=== PATIENT | female | born 1955 | race Asian ===

== ENCOUNTER 2016-11-18 08:29 | Outpatient (CLI) | payer OTHER ==
[~2016-11-18 08:29] MED LIST: FENOFIBRATE; NIACIN
[2016-11-18 09:42] LABS: ALBUMIN 4.5 g/dL (3.4-4.8); BILIRUBIN,DIRECT 0.2 mg/dL (0.0-0.3); TOTAL BILIRUBIN 0.8 mg/dL (0.0-1.0)
== END 2016-11-18 18:08 | disposition home or self-care (01) ==
LOC: SLB 08:29
PROVIDERS: ATTEND Family Medicine
DX: E78.00 Pure hypercholesterolemia, unspecified (principal)
CPT/HCPCS: 36415; 80061; 80076

== ENCOUNTER 2017-04-15 08:57 | Emergency (ER) | payer OTHER ==
[~2017-04-15] VITALS: Ht 152.4 cm; Wt 54.4 kg
[2017-04-15 08:57] VITALS: BP_SYST 146
--- NOTE | 2017-04-15 08:57 | NUR ---
BROUGHT BACK TO BED #3 AND TRIAGED. REPORT GIVEN TO JORDIN
--- NOTE | 2017-04-15 09:00 | NUR ---
Pt presents to ER c/o productive cough & chest tightness x 5 days. Pt reports coughing up white sputum. Pt reports pain when she coughs, but denies any pain elsewhere. Pt also denies N/V/D/CHEST PAIN/SOB. Pt reports history of HTN, hyperlipidemia. Pt in no acute distress, AOX4, allergies noted, brought in by self to ER.
--- NOTE | 2017-04-15 09:10 | NUR ---
ER at bedside examining patient.
--- NOTE | 2017-04-15 09:30 | NUR ---
Patient transported to radiology via ambulatory, accompanied by rad staff.
--- NOTE | 2017-04-15 09:38 | NUR ---
Returned from radiology, back to [facility].
[2017-04-15] MEDS: ALBUTEROL SULFATE 0.083% 2.5 MG/3 ML VIAL.NEB IH ONE (09:44)
[2017-04-15] MEDS: IPRATROPIUM BROM 0.5 MG/2.5 ML VIAL.NEB (ATROVENT) IH ONE (09:44)
[2017-04-15 10:23] VITALS: BP_SYST 123
--- NOTE | 2017-04-15 10:24 | NUR ---
Patient given written and verbal discharge instructions and verbalizes understanding. ER MD discussed with patient the results and treatment provided. Patient in stable condition. ID arm band removed. Rx of ALBUTEROL, ROBITUSSIN given. Patient educated on pain management and to follow up with PMD. Pain Scale . Opportunity for questions provided and answered.
== END 2017-04-15 10:23 | disposition home or self-care (01) ==
LOC: SED 08:57
DX: J20.8 Acute bronchitis due to other specified organisms (principal); B96.89 Other specified bacterial agents as the cause of diseases classified elsewhere; I10 Essential (primary) hypertension; E78.00 Pure hypercholesterolemia, unspecified; Z88.8 Allergy status to other drugs, medicaments and biological substances
CPT/HCPCS: 36415; 71046-TC; 86710; 94640; 99285

== ENCOUNTER 2017-11-05 08:15 | Outpatient (CLI) | payer OTHER ==
[2017-11-05 09:03] LABS: BILIRUBIN,URINE NEGATIVE (NEGATIVE); BLOOD, URINE NEGATIVE (NEGATIVE); CLARITY/URINE CLEAR (CLEAR); COLOR,URINE YELLOW (YELLOW); GLUCOSE,URINE NEGATIVE (NEGATIVE); KETONES,URINE NEGATIVE (NEGATIVE); LEUKOCYTE ESTERASE ,URINE NEGATIVE (NEGATIVE); NITRITE, URINE NEGATIVE (NEGATIVE); PROTEIN URINE NEGATIVE (NEGATIVE); UROBILINOGEN,URINE 0.2 (0.2-1.0)
[2017-11-05 09:13] LABS: BASOPHILS # (AUTO) 0.1 K/uL (0.0-0.2); EOSINOPHILS # (AUTO) 0.1 K/uL (0.0-0.4); EOSINOPHILS % (AUTO) 1.6 % (0.0-4.0); HEMOGLOBIN 14.7 g/dL (12.0-16.0); LYMPHOCYTES # (AUTO) 2.4 K/uL (1.0-5.5); LYMPHOCYTES % (AUTO) 40.7 % (20.5-51.5); MEAN CORPUSCULAR HEMOGLOBIN 31 pg (27-31); MEAN CORPUSCULAR HGB CONC 33 % (32-36); MEAN CORPUSCULAR VOLUME 92 fL (79.0-98.0); MONOCYTES # (AUTO) 0.5 K/uL (0.0-1.0); MONOCYTES % (AUTO) 9.3 % (1.7-9.3); NEUTROPHILS # (AUTO) 2.8 K/uL (1.8-7.7); NEUTROPHILS % (AUTO) 47.4 % (40.0-70.0); PLATELET COUNT (AUTO) 230 K/uL (130-430); RED BLOOD CELL COUNT(AUTO) 4.77 MIL/uL (4.2-6.2); RED CELL DISTRIBUTION WIDTH 12.2 % (9.0-15.0); WHITE BLOOD COUNT (AUTO) 5.9 K/uL (4.8-10.8)
[2017-11-05 09:15] LABS: CALCIUM 8.8 mg/dL (8.4-11.0); CREATININE 0.79 mg/dL (0.55-1.30); POTASSIUM 3.6 mmol/L (3.5-5.1)
[2017-11-05 09:30] LABS: ALBUMIN 4.1 g/dL (3.4-4.8); THYROID STIMULATING HORMONE 3.31 uIu/mL (0.36-3.74); TOTAL BILIRUBIN 0.5 mg/dL (0.0-1.0)
[2017-11-06 05:06] LABS: TRIIODOTHYRONINE, FREE 2.7 pg/mL (2.0-4.4)
[2017-11-06 14:12] LABS: HEMOGLOBIN A1C 6.3 % (4.8-5.6)
== END 2017-11-05 20:30 | disposition home or self-care (01) ==
LOC: SLB 08:15
PROVIDERS: ATTEND Family Medicine
DX: Z12.11 Encounter for screening for malignant neoplasm of colon (principal)
CPT/HCPCS: 36415; 80053; 80061; 81003; 83036; 84443-TC; 84480; 84481; 85025

== ENCOUNTER 2018-08-04 11:23 | Outpatient (CLI) | payer OTHER ==
[2018-08-04 12:25] LABS: ALBUMIN 3.9 g/dL (3.4-4.8); BILIRUBIN,DIRECT 0.2 mg/dL (0.0-0.3); TOTAL BILIRUBIN 0.6 mg/dL (0.0-1.0)
== END 2018-08-04 21:16 | disposition home or self-care (01) ==
LOC: SRD 11:23
PROVIDERS: ATTEND Family Medicine
DX: E78.00 Pure hypercholesterolemia, unspecified (principal); Z20.1 Contact with and (suspected) exposure to tuberculosis
CPT/HCPCS: 36415; 71046-TC; 80061; 80076

== ENCOUNTER 2019-02-03 23:14 | Emergency (ER) | payer OTHER ==
[~2019-02-03] VITALS: Ht 152.4 cm; Wt 58.1 kg
[2019-02-03 23:14] VITALS: BP_SYST 205
--- NOTE | 2019-02-03 23:14 | NUR ---
Placed in room 1 . Placed on cardiac nurse practitioner, blood pressure machine and pulse oximeter. To gown for exam. Side rails up.
--- NOTE | 2019-02-03 23:16 | NUR ---
Pt was BIB wheelchair for hypertension, 158/100. Pt complains that she has been feeling a little dizzy and feels like she needs to catch a breath. Pt reports she feels cool and clammy and she took an extra Norvasc 5mg PO prior to coming to ED. Pt denies chest pain, N/V. No other injuries/complaints per patient or noted.
--- NOTE | 2019-02-03 23:24 | NUR ---
ER Dr. Márquez at bedside examining patient.
[2019-02-03] MEDS ORDERED: ATOR20TA64 PO (23:40)
[2019-02-03] MEDS ORDERED: AMLO5TAB4 PO (23:40)
[2019-02-03] MEDS ORDERED: NACL 0.9% 1,000 ML IV ONE (23:52)
[2019-02-04 00:13] LABS: BASOPHILS % (AUTO) 0.8 % (0.0-2.0); EOSINOPHILS % (AUTO) 0.7 % (0.0-4.0); HEMATOCRIT 42.7 % (36-48); HEMOGLOBIN 14.4 g/dL (12.0-16.0); LYMPHOCYTES # (AUTO) 1.3 K/uL (1.0-5.5); LYMPHOCYTES % (AUTO) 25.6 % (20.5-51.5); MEAN CORPUSCULAR HEMOGLOBIN 32 pg (27-31); MEAN CORPUSCULAR HGB CONC 34 % (32-36); MEAN CORPUSCULAR VOLUME 94 fL (79.0-98.0); MONOCYTES # (AUTO) 0.4 K/uL (0.0-1.0); MONOCYTES % (AUTO) 8.8 % (1.7-9.3); NEUTROPHILS # (AUTO) 3.3 K/uL (1.8-7.7); NEUTROPHILS % (AUTO) 64.1 % (40.0-70.0); PLATELET COUNT (AUTO) 184 K/uL (130-430); RED BLOOD CELL COUNT(AUTO) 4.54 MIL/uL (4.2-6.2); RED CELL DISTRIBUTION WIDTH 13.2 % (9.0-15.0); WHITE BLOOD COUNT (AUTO) 5.1 K/uL (4.8-10.8)
[2019-02-04 00:27] LABS: CALCIUM 9.1 mg/dL (8.4-11.0); CREATININE 1.15 mg/dL (0.55-1.30); POTASSIUM 3.8 mmol/L (3.5-5.1)
[2019-02-04 00:32] LABS: PROTHROMBIN TIME 10.2 SECS (9.5-12.5)
[2019-02-04 00:39] LABS: ALBUMIN 4.2 g/dL (3.4-4.8); TOTAL BILIRUBIN 0.3 mg/dL (0.0-1.0)
[2019-02-04] MEDS ORDERED: hydrALAZINE HCL 20 MG/ML VIAL IVP ONE ×2 (01:15)
--- NOTE | 2019-02-04 01:27 | NUR ---
medicated per md orders. patient tolerated well. will continue to monitor patient
[2019-02-04] MEDS ORDERED: ONDANSETRON HCL 4 MG/2 ML VIAL IVP ONE (02:00)
[2019-02-04 02:43] VITALS: BP_SYST 128
--- NOTE | 2019-02-04 02:43 | NUR ---
Patient given written and verbal discharge instructions and verbalizes understanding. ER MD discussed with patient the results and treatment provided. Patient in stable condition. ID arm band removed. IV catheter removed intact and dressing applied, no active bleeding. No Rx given. Patient educated on pain management and to follow up with PMD. Pain Scale 0. Opportunity for questions provided and answered. Medication side effect fact sheet provided.
== END 2019-02-04 02:43 | disposition home or self-care (01) ==
LOC: SED 23:14
DX: I10 Essential (primary) hypertension (principal); E78.00 Pure hypercholesterolemia, unspecified; R42 Dizziness and giddiness; Z79.899 Other long term (current) drug therapy; Z88.8 Allergy status to other drugs, medicaments and biological substances
CPT/HCPCS: 36415; 71045; 80053; 84484; 85025; 85610; 85730; 93005; 96361; 96374; 96375; 99284; J0360; J2405; J7030

== ENCOUNTER 2019-04-29 08:00 | Outpatient (CLI) | payer OTHER ==
[~2019-04-29 08:00] MED LIST changes: +AMLO5TAB4 PO; +ATOR20TA64 PO; -FENOFIBRATE; -NIACIN
[2019-04-29 09:23] LABS: HDL CHOLESTEROL 57 mg/dL (>55); TRIGLYCERIDES 87 mg/dL (30-150)
[2019-04-29 09:24] LABS: CHOLESTEROL 185 mg/dL (<200); LDL CHOLESTEROL 105 mg/dL (<100)
== END 2019-04-29 18:46 | disposition home or self-care (01) ==
LOC: SLB 08:00
PROVIDERS: ATTEND Family Medicine
DX: E78.00 Pure hypercholesterolemia, unspecified (principal); R73.02 Impaired glucose tolerance (oral)
CPT/HCPCS: 36415; 80061; 83036

== ENCOUNTER 2020-05-23 08:50 | Outpatient (CLI) | payer OTHER ==
[2020-05-23 09:44] LABS: BASOPHILS # (AUTO) 0.1 K/uL (0.0-0.2); BASOPHILS % (AUTO) 0.9 % (0.0-2.0); BILIRUBIN,URINE NEGATIVE (NEGATIVE); BLOOD, URINE NEGATIVE (NEGATIVE); CLARITY/URINE CLEAR (CLEAR); COLOR,URINE YELLOW (YELLOW); EOSINOPHILS # (AUTO) 0.1 K/uL (0.0-0.4); EOSINOPHILS % (AUTO) 1.7 % (0.0-4.0); GLUCOSE,URINE NEGATIVE (NEGATIVE); HEMATOCRIT 41.4 % (36-48); HEMOGLOBIN 13.7 g/dL (12.0-16.0); KETONES,URINE NEGATIVE (NEGATIVE); LEUKOCYTE ESTERASE ,URINE NEGATIVE (NEGATIVE); LYMPHOCYTES # (AUTO) 2.2 K/uL (1.0-5.5); LYMPHOCYTES % (AUTO) 38.5 % (20.5-51.5); MEAN CORPUSCULAR HEMOGLOBIN 31 pg (27-31); MEAN CORPUSCULAR HGB CONC 33 % (32-36); MEAN CORPUSCULAR VOLUME 93 fL (79.0-98.0); MONOCYTES # (AUTO) 0.4 K/uL (0.0-1.0); MONOCYTES % (AUTO) 6.8 % (1.7-9.3); NEUTROPHILS # (AUTO) 2.9 K/uL (1.8-7.7); NEUTROPHILS % (AUTO) 52.1 % (40.0-70.0); NITRITE, URINE NEGATIVE (NEGATIVE); PLATELET COUNT (AUTO) 240 K/uL (130-430); PROTEIN URINE NEGATIVE (NEGATIVE); RED BLOOD CELL COUNT(AUTO) 4.46 MIL/uL (4.2-6.2); UROBILINOGEN,URINE 0.2 (0.2-1.0); WHITE BLOOD COUNT (AUTO) 5.6 K/uL (4.8-10.8)
[2020-05-23 10:16] LABS: CALCIUM 8.8 mg/dL (8.4-11.0); CREATININE 0.77 mg/dL (0.55-1.30); FREE T4 (FREE THYROXINE) 0.9 ng/dl (0.8-1.5); POTASSIUM 3.9 mmol/L (3.5-5.1); THYROID STIMULATING HORMONE 3.49 uIu/mL (0.36-3.74); TOTAL BILIRUBIN 0.5 mg/dL (0.0-1.0)
== END 2020-05-23 20:43 | disposition home or self-care (01) ==
LOC: SLB 08:50
PROVIDERS: ATTEND Family Medicine
DX: Z00.00 Encounter for general adult medical examination without abnormal findings (principal); Z12.11 Encounter for screening for malignant neoplasm of colon
CPT/HCPCS: 36415; 80053; 80061; 81003; 82272; 83036; 84439; 84443-TC; 85025

== ENCOUNTER 2020-09-18 07:47 | Outpatient (CLI) | payer OTHER ==
[2020-09-18 08:29] LABS: CHOLESTEROL 214 mg/dL (<200); HDL CHOLESTEROL 65 mg/dL (>55); LDL CHOLESTEROL 130 mg/dL (<100); TRIGLYCERIDES 119 mg/dL (30-150)
== END 2020-09-18 14:03 | disposition home or self-care (01) ==
LOC: SLB 07:47
PROVIDERS: ATTEND Family Medicine
DX: R73.02 Impaired glucose tolerance (oral) (principal)
CPT/HCPCS: 36415; 80061; 83036

== ENCOUNTER 2020-11-22 10:53 | Day surgery (SDC) | payer OTHER, SELFPAY ==
[2020-11-19 10:03] LABS: BASOPHILS # (AUTO) 0.1 K/uL (0.0-0.2); BASOPHILS % (AUTO) 1.3 % (0.0-2.0); EOSINOPHILS # (AUTO) 0.1 K/uL (0.0-0.4); EOSINOPHILS % (AUTO) 2.4 % (0.0-4.0); HEMOGLOBIN 14.1 g/dL (12.0-16.0); LYMPHOCYTES # (AUTO) 2.2 K/uL (1.0-5.5); LYMPHOCYTES % (AUTO) 43.4 % (20.5-51.5); MEAN CORPUSCULAR HEMOGLOBIN 31 pg (27-31); MEAN CORPUSCULAR HGB CONC 34 % (32-36); MEAN CORPUSCULAR VOLUME 93 fL (79.0-98.0); MONOCYTES # (AUTO) 0.4 K/uL (0.0-1.0); MONOCYTES % (AUTO) 7.5 % (1.7-9.3); NEUTROPHILS # (AUTO) 2.3 K/uL (1.8-7.7); NEUTROPHILS % (AUTO) 45.4 % (40.0-70.0); PLATELET COUNT (AUTO) 209 K/uL (130-430); RED BLOOD CELL COUNT(AUTO) 4.53 MIL/uL (4.2-6.2); RED CELL DISTRIBUTION WIDTH 12.8 % (9.0-15.0)
[2020-11-19 10:39] LABS: ALBUMIN 4.1 g/dL (3.4-4.8); CREATININE 0.66 mg/dL (0.55-1.30); TOTAL BILIRUBIN 0.2 mg/dL (0.0-1.0)
[~2020-11-22] VITALS: Ht 152.4 cm; Wt 58.1 kg
[~2020-11-22 10:53] MED LIST changes: +CEFAZOLIN 1 GM IVPB PREMIX 50 ML IV ONE; +CEFAZOLIN 1 GM IVPB PREMIX 50 ML IV SCH
[2020-11-22] MEDS ORDERED: BUPIVACAINE /PF 0.25% 30 ML VIAL INJ ONE (12:37)
[2020-11-22] MEDS ORDERED: ROCURONIUM BROMIDE 10 MG/ML (ZEMURON) IV ONE (12:37)
[2020-11-22] MEDS ORDERED: SEVOFLURANE 15 MIN GAS INH ONE (12:37)
[2020-11-22] MEDS ORDERED: LR 1,000 ML IV.SOLN IV ONE (12:37)
[2020-11-22] MEDS ORDERED: PROPOFOL 200MG/ 20ML VIAL (DIPRIVAN) IV ONE (12:37)
[2020-11-22] MEDS ORDERED: DEXAMETHASONE SOD PHOSPHATE 4 MG/ML VIAL IVP ONE (12:37)
[2020-11-22] MEDS ORDERED: SUGAMMADEX SODIUM 200 MG/2 ML VIAL IV ONE (12:37)
[2020-11-22] MEDS ORDERED: MIDAZOLAM HCL 5 MG/5 ML VIAL IVP ONE (12:37)
[2020-11-22] MEDS ORDERED: fentaNYL CITRATE/PF 100 MCG/2 ML AMP IVP ONE (12:37)
[2020-11-22] MEDS ORDERED: SUCCINYLCHOLINE CHLORIDE 20 MG/ML(QUELICIN) IVP ONE (12:37)
[2020-11-22] MEDS ORDERED: MEPERIDINE HCL/PF 25 MG/ML DISP.SYRIN IVP PRN (13:30)
[2020-11-22] MEDS ORDERED: LR 1,000 ML IV SCH (13:30)
[2020-11-22] MEDS ORDERED: HYDROmorphone 1 MG/ML INJ. CARTRIDGE IVP PRN (13:30)
[2020-11-22] MEDS ORDERED: HYDROmorphone 2 MG/ML VIAL IVP PRN ×2 (13:30)
[2020-11-22] MEDS ORDERED: ACETAMINOPHEN I.V. 1000 MG 100 ML IV ONE (13:32)
[2020-11-22 16:31] VITALS: BP_SYST 116
== END 2020-11-22 15:45 | disposition home or self-care (01) ==
LOC: SDS 10:53 → SMU 10:56 → SDS 15:45
PROVIDERS: ATTEND Surgery
DX: D17.39 Benign lipomatous neoplasm of skin and subcutaneous tissue of other sites (principal); I10 Essential (primary) hypertension; F41.9 Anxiety disorder, unspecified; E11.9 Type 2 diabetes mellitus without complications; E78.5 Hyperlipidemia, unspecified; Z90.710 Acquired absence of both cervix and uterus; Z90.49 Acquired absence of other specified parts of digestive tract; Z79.899 Other long term (current) drug therapy; Z20.822 Contact with and (suspected) exposure to COVID-19
CPT/HCPCS: 21933; 36415; 71046; 80053; 85025; 88305; 93005; C9399; J0131; J0330; J0690; J1100; J2250; J2704; J3010; J3490; J7120; U0003

== ENCOUNTER 2021-02-28 08:24 | Outpatient (CLI) | payer OTHER ==
[~2021-02-28 08:24] MED LIST changes: -CEFAZOLIN 1 GM IVPB PREMIX 50 ML IV ONE; -CEFAZOLIN 1 GM IVPB PREMIX 50 ML IV SCH
[2021-02-28 09:19] LABS: BASOPHILS # (AUTO) 0.1 K/uL (0.0-0.2); EOSINOPHILS # (AUTO) 0.1 K/uL (0.0-0.4); EOSINOPHILS % (AUTO) 1.7 % (0.0-4.0); HEMATOCRIT 43.3 % (36-48); HEMOGLOBIN 14.3 g/dL (12.0-16.0); LYMPHOCYTES # (AUTO) 2.3 K/uL (1.0-5.5); LYMPHOCYTES % (AUTO) 46.8 % (20.5-51.5); MEAN CORPUSCULAR HEMOGLOBIN 30 pg (27-31); MEAN CORPUSCULAR HGB CONC 33 % (32-36); MEAN CORPUSCULAR VOLUME 92 fL (79.0-98.0); MONOCYTES # (AUTO) 0.4 K/uL (0.0-1.0); MONOCYTES % (AUTO) 8.4 % (1.7-9.3); NEUTROPHILS # (AUTO) 2.1 K/uL (1.8-7.7); NEUTROPHILS % (AUTO) 42.1 % (40.0-70.0); PLATELET COUNT (AUTO) 230 K/uL (130-430); RED BLOOD CELL COUNT(AUTO) 4.71 MIL/uL (4.2-6.2); RED CELL DISTRIBUTION WIDTH 12.7 % (9.0-15.0); WHITE BLOOD COUNT (AUTO) 4.9 K/uL (4.8-10.8)
[2021-02-28 09:45] LABS: ALBUMIN 4.3 g/dL (3.4-4.8); CALCIUM 9.4 mg/dL (8.4-11.0); CREATININE 0.68 mg/dL (0.55-1.30); FREE T4 (FREE THYROXINE) 0.9 ng/dl (0.8-1.5); POTASSIUM 3.8 mmol/L (3.5-5.1); THYROID STIMULATING HORMONE 3.64 uIu/mL (0.36-3.74); TOTAL BILIRUBIN 0.6 mg/dL (0.0-1.0)
[2021-02-28 10:11] LABS: BILIRUBIN,URINE NEGATIVE (NEGATIVE); BLOOD, URINE NEGATIVE (NEGATIVE); CLARITY/URINE CLEAR (CLEAR); COLOR,URINE YELLOW (YELLOW); GLUCOSE,URINE NEGATIVE (NEGATIVE); KETONES,URINE NEGATIVE (NEGATIVE); LEUKOCYTE ESTERASE ,URINE NEGATIVE (NEGATIVE); NITRITE, URINE NEGATIVE (NEGATIVE); PH,URINE 6.5 (5.0-8.0); PROTEIN URINE NEGATIVE (NEGATIVE); UROBILINOGEN,URINE 0.2 (0.2-1.0)
== END 2021-02-28 20:52 | disposition home or self-care (01) ==
LOC: SRD 08:24
PROVIDERS: ATTEND Family Medicine
DX: Z00.00 Encounter for general adult medical examination without abnormal findings (principal); M47.816 Spondylosis without myelopathy or radiculopathy, lumbar region; M41.86 Other forms of scoliosis, lumbar region; Z12.11 Encounter for screening for malignant neoplasm of colon; M48.061 Spinal stenosis, lumbar region without neurogenic claudication; M54.50 Low back pain, unspecified; M46.06 Spinal enthesopathy, lumbar region
CPT/HCPCS: 36415; 72110; 80053; 80061; 81003; 84439; 84443; 85025

== ENCOUNTER 2021-04-01 10:04 | Outpatient (CLI) | payer OTHER | END 2021-04-01 20:14 | disposition home or self-care (01) | LOC: SMI 10:04 | PROVIDERS: ATTEND Family Medicine | DX: M47.816 Spondylosis without myelopathy or radiculopathy, lumbar region (principal); M51.26 Other intervertebral disc displacement, lumbar region; M48.061 Spinal stenosis, lumbar region without neurogenic claudication; M54.32 Sciatica, left side | CPT/HCPCS: 72148 ==